=== PATIENT | male | born 1960 | race Caucasian/White ===

== ENCOUNTER 2016-08-06 23:40 | Emergency (ER) | payer OTHER ==
[~2016-08-06] VITALS: Ht 172.7 cm; Wt 128.6 kg
[~2016-08-06 23:40] MED LIST: ASPIR 8181 M1 PO; ASPIRIN81 M1 PO; ATORVASTATIN CA20 MG PO; DEPAKOTE500 MG PO; DESYREL100 MG PO; LODINE400 MG PO; RISPERIDONE4 MG PO; SERTRALINE HCL100 MG PO; SIMVASTATIN10 MG PO; VITAMIN D35000 UNIT PO
[2016-08-07 00:32] LABS: HEMATOCRIT 42.6 % (38.0-50.0); MCH 29.5 PG (29.0-34.0); MCHC 33.3 G/DL (30.0-36.0); MCV 88.4 FL (86-99); MEAN PLAT.VOLUME 10.1 uM^3 (9.0-12.4); PLATELET COUNT 157 K/uL (156-360); RBC DIS.WIDTH-CV 13.7 % (11.8-14.6); RBC DIS.WIDTH-SD 44.2 % (39-53); RED BLOOD COUNT 4.82 M/uL (4.00-5.50); WHITE BLOOD COUNT 5.7 K/uL (4.1-10.2)
[2016-08-07 00:43] LABS: CHLORIDE 108 mEq/L (99-109); SODIUM 142 mEq/L (136-147)
[2016-08-07 00:46] LABS: ANION GAP 10 MEQ/L (2-14)
[2016-08-07 00:48] LABS: SERUM ETHYL ALCOHOL < 10 mg/dL
[2016-08-07 00:49] LABS: GFR ESTIMATE (CALCULATED) > 59 mL/min/; UREA NITROGEN (BUN) 12 mg/dL (9-23)
[2016-08-07 01:16] LABS: GLUCOSE 87 mg/dL (70-99)
[2016-08-07 02:50] VITALS: BP 116/77
== END 2016-08-07 02:50 | disposition home or self-care (01) ==
LOC: EME 23:40
PROVIDERS: Emergency Medicine
DX: F32.9 Major depressive disorder, single episode, unspecified (principal); E78.5 Hyperlipidemia, unspecified; Z79.82 Long term (current) use of aspirin; F17.200 Nicotine dependence, unspecified, uncomplicated
CPT/HCPCS: 80048; 81003; 85027; 90837; 99281; 99285; G0480